=== PATIENT | female | born 1970 | race Caucasian/White ===

== ENCOUNTER 2016-09-27 14:59 | Emergency (ER) | payer MEDICARE, MEDICAID ==
[2016-01-17 13:44] VITALS: BMI 49.3
[~2016-09-27 14:59] MED LIST: ADDERALL 30 MG30 MG PO; ADVAIR 250/501 DISK INH; BAYER CHEWABLE81 MG PO; BENICAR20 MG PO; BUTALB-APAP-CA1 EACH PO; CIPRO500 MG PO; CORTISPORIN OTI10 M1 EACH EAR; EFFEXOR75 MG; FARXIGA10 MG PO; GLUCOPHAGE500 MG PO; K-TAB10 MEQ PO; KEFLEX500 MG PO; LASIX40 MG PO; LEVOTHROID100 MCG PO; LOPRESSOR25 MG PO; NEURONTIN600 MG PO; NITROSTAT0.4 MG SL; NORCO 10/325 TA1 TA1 PO; NORCO 7.5/325 T1 TA1 PO; OXYBUTYNIN CHLOR5 MG PO; PERCOCET 10/3251 TA1 PO; PHENERGAN25 M1 PO; PRAVACHOL40 MG PO; PREDNISONE10 MG PO; PRILOSEC20 MG PO; PROAIR HFA8.5 GM INH; PROTONIX40 MG PO; RESTASIS EYE DR30 EA EACH EYE; SEROQUEL300 MG PO; SOMA350 MG PO; SYNTHROID125 MCG PO; TRAZODONE HCL300 MG PO; TRIGLIDE160 MG PO; VITAMIN D5000 UNIT PO; XANAX2 MG PO; ZANAFLEX4 MG PO; ZOVIRAX400 MG PO
== END 2016-09-27 20:01 | disposition home or self-care (01) ==
LOC: D.ER 14:59
DX: M54.2 Cervicalgia (principal); W18.30XA Fall on same level, unspecified, initial encounter; Y93.89 Activity, other specified; Y92.019 Unspecified place in single-family (private) house as the place of occurrence of the external cause; J45.909 Unspecified asthma, uncomplicated; K21.9 Gastro-esophageal reflux disease without esophagitis; I10 Essential (primary) hypertension; E66.01 Morbid (severe) obesity due to excess calories; F32.9 Major depressive disorder, single episode, unspecified; F41.9 Anxiety disorder, unspecified; E03.9 Hypothyroidism, unspecified

== ENCOUNTER 2017-04-28 17:03 | Emergency (ER) | payer MEDICARE, MEDICAID ==
[2016-01-17 13:44] VITALS: BMI 49.3
[2017-04-28 17:55] LABS: BASOPHILS 0.5 % (0-2); EOSINOPHILS 2.1 % (0-7); HEMATOCRIT 39.3 % (36.0-48.0); HEMOGLOBIN 13.1 g/dL (12-16); IMMATURE GRANULOCYTES 0.5 % (0-5); LYMPHOCYTES 37.6 % (15-50); MCH 29.4 pg (26.0-34.0); MCHC 33.3 g/dL (31.0-37.0); MCV 88.3 fL (80.0-100.0); MEAN PLATELET VOLUME 10.1 fL (7.4-10.4); MONOCYTES 4.5 % (2-11); NEUTROPHILS 54.8 % (40-80); RBC 4.45 10x6/uL (4.00-5.40); RDW 12.7 % (11.5-14.5); WBC 8.1 10x3/uL (4.8-10.8)
[2017-04-28 17:58] LABS: PLATELET COUNT 272 10x3/uL (130-400)
[2017-04-28 18:19] LABS: ALBUMIN 3.8 g/dL (3.4-5.0); ALKALINE PHOSPHATASE 78 U/L (46-116); ALT (SGPT) 28 U/L (10-68); BILIRUBIN - TOTAL 0.15 mg/dL (0.2-1.3); CALC OSMOLALITY 282 mosm/kg (275-300); CALCIUM 8.3 mg/dL (8.5-10.1); CARBON DIOXIDE 25.8 mmol/L (21.0-32.0); CHLORIDE - SERUM 104 mmol/L (98-107); CREATININE - SERUM 0.8 mg/dL (0.6-1.3); GLUCOSE 97 mg/dL (74-106); POTASSIUM - SERUM 3.8 mmol/L (3.5-5.1); PROTEIN - SERUM 6.8 g/dL (6.4-8.2); SODIUM 141 mmol/L (136-145); UREA NITROGEN 18 mg/dL (7-18); eGFR NON AFRICAN AMERICAN 81 mL/min (90-120)
[2017-04-28 18:30] LABS: CHOL - HDL RATIO 2.4 ratio (2.3-4.1); CHOLESTEROL, TOTAL 149 mg/dL (0-200); CKMB 0.7 U/L (0.0-3.6); CREATINE KINASE 464 UL (21-215); HDL CHOLESTEROL 63 mg/dL (32-96); LDL CHOLESTEROL 63 mg/dL (0-100); TRIGLYCERIDE 116 mg/dL (30-200)
[2017-04-28 18:33] LABS: TROPONIN-I < 0.017 ng/mL (0.000-0.060)
[2017-04-28 22:21] LABS: APPEARANCE CLEAR (CLEAR); BILIRUBIN NEGATIVE (NEGATIVE); COLOR YELLOW (YELLOW); GLUCOSE NEGATIVE (NEGATIVE); KETONE NEGATIVE (NEGATIVE); LEUKOCYTE ESTERASE 1+ (NEGATIVE); NITRITE POSITIVE (NEGATIVE); PROTEIN NEGATIVE (NEGATIVE); SPECIFIC GRAVITY 1.015 (1.005-1.020); UROBILINOGEN NORMAL (NORMAL)
[2017-04-28 22:22] LABS: BACTERIA MANY /hpf (NONE SEEN); EPITHELIAL CELLS 0-5 /hpf (0-5); RED CELLS - URINE 0-5 /hpf (0-5)
[2017-04-28 22:31] LABS: UDS - AMPHET NEGATIVE QUAL (NEGATIVE); UDS - BARB POSITIVE QUAL (NEGATIVE); UDS - BENZO NEGATIVE QUAL (NEGATIVE); UDS - COCAINE NEGATIVE QUAL (NEGATIVE); UDS - METH NEGATIVE QUAL (NEGATIVE); UDS - OPIATE POSITIVE QUAL (NEGATIVE); UDS - PCP NEGATIVE QUAL (NEGATIVE); UDS - THC NEGATIVE QUAL (NEGATIVE)
== END 2017-04-28 23:22 | disposition home or self-care (01) ==
LOC: D.ER 17:03
PROVIDERS: Emergency Medicine; Family Medicine
DX: B02.9 Zoster without complications (principal); R07.89 Other chest pain; N39.0 Urinary tract infection, site not specified; J45.909 Unspecified asthma, uncomplicated; K21.9 Gastro-esophageal reflux disease without esophagitis; I10 Essential (primary) hypertension; E11.9 Type 2 diabetes mellitus without complications; J44.9 Chronic obstructive pulmonary disease, unspecified

== ENCOUNTER 2017-06-25 17:37 | Emergency (ER) | payer MEDICARE, MEDICAID ==
[2016-01-17 13:44] VITALS: BMI 49.3
[2017-06-25 20:43] LABS: APPEARANCE HAZY (CLEAR); BILIRUBIN NEGATIVE (NEGATIVE); COLOR YELLOW (YELLOW); GLUCOSE 100 mg/dL (NEGATIVE); KETONE NEGATIVE (NEGATIVE); NITRITE POSITIVE (NEGATIVE); PROTEIN NEGATIVE (NEGATIVE); SPECIFIC GRAVITY 1.015 (1.005-1.020); UROBILINOGEN NORMAL (NORMAL)
[2017-06-25 20:44] LABS: BACTERIA MANY /hpf (NONE SEEN); EPITHELIAL CELLS 0-5 /hpf (0-5); RED CELLS - URINE OCC /hpf (0-5); WHITE CELLS - URINE 0-5 /hpf (0-5)
[2017-06-25 20:48] LABS: UDS - AMPHET NEGATIVE QUAL (NEGATIVE); UDS - BARB POSITIVE QUAL (NEGATIVE); UDS - BENZO POSITIVE QUAL (NEGATIVE); UDS - COCAINE NEGATIVE QUAL (NEGATIVE); UDS - OPIATE POSITIVE QUAL (NEGATIVE); UDS - PCP NEGATIVE QUAL (NEGATIVE); UDS - THC NEGATIVE QUAL (NEGATIVE)
[2017-06-25 21:15] LABS: BASOPHILS 0.5 % (0-2); EOSINOPHILS 3.1 % (0-7); HEMATOCRIT 36.8 % (36.0-48.0); HEMOGLOBIN 11.9 g/dL (12-16); IMMATURE GRANULOCYTES 0.1 % (0-5); MCH 28.8 pg (26.0-34.0); MCHC 32.3 g/dL (31.0-37.0); MCV 89.1 fL (80.0-100.0); MEAN PLATELET VOLUME 10.6 fL (7.4-10.4); MONOCYTES 6.3 % (2-11); PLATELET COUNT 232 10x3/uL (130-400); RBC 4.13 10x6/uL (4.00-5.40); RDW 12.6 % (11.5-14.5); WBC 7.3 10x3/uL (4.8-10.8)
[2017-06-25 21:31] LABS: ALBUMIN 3.1 g/dL (3.4-5.0); ANION GAP 13.1 mmol/L (8-16); CALCIUM 8.1 mg/dL (8.5-10.1); CARBON DIOXIDE 26.8 mmol/L (21.0-32.0); CREATININE - SERUM 0.9 mg/dL (0.6-1.3); POTASSIUM - SERUM 3.9 mmol/L (3.5-5.1); PROTEIN - SERUM 6.2 g/dL (6.4-8.2)
[2017-06-25 21:32] LABS: BILIRUBIN - TOTAL 0.08 mg/dL (0.2-1.3)
[2017-06-25 21:33] LABS: AMYLASE - SERUM 27 U/L (25-115); LIPASE 93 U/L (73-393)
== END 2017-06-25 22:09 | disposition home or self-care (01) ==
LOC: D.ER 17:37
PROVIDERS: Emergency Medicine; Nurse Practitioner Family
DX: N39.0 Urinary tract infection, site not specified (principal); E11.9 Type 2 diabetes mellitus without complications; J44.9 Chronic obstructive pulmonary disease, unspecified; I10 Essential (primary) hypertension

== ENCOUNTER 2017-08-19 17:17 | Emergency (ER) | payer MEDICARE, MEDICAID ==
[2016-01-17 13:44] VITALS: BMI 49.3
[2017-08-19 22:06] LABS: BASOPHILS 0.5 % (0-2); EOSINOPHILS 3.7 % (0-7); HEMATOCRIT 43.9 % (36.0-48.0); HEMOGLOBIN 12.1 g/dL (12-16); IMMATURE GRANULOCYTES 0.6 % (0-5); LYMPHOCYTES 33.1 % (15-50); MCH 29.3 pg (26.0-34.0); MCHC 27.6 g/dL (31.0-37.0); MCV 106.3 fL (80.0-100.0); MONOCYTES 6.3 % (2-11); NEUTROPHILS 55.8 % (40-80); RBC 4.13 10x6/uL (4.00-5.40); RDW 13.9 % (11.5-14.5); WBC 8.4 10x3/uL (4.8-10.8)
[2017-08-19 22:11] LABS: PLATELET COUNT 399 10x3/uL (130-400)
== END 2017-08-19 23:50 | disposition home or self-care (01) ==
LOC: D.ER 17:17
PROVIDERS: Family Medicine
DX: R10.9 Unspecified abdominal pain (principal); K59.00 Constipation, unspecified; J44.9 Chronic obstructive pulmonary disease, unspecified; E11.9 Type 2 diabetes mellitus without complications; I10 Essential (primary) hypertension

== ENCOUNTER 2018-04-30 12:34 | Day surgery (SDC) | payer MEDICARE, MEDICAID ==
[~2018-04-30] VITALS: Ht 167.6 cm; Wt 140.9 kg
--- NOTE | ~2018-04-30 | OP ---
PATIENT NAME: KELLY KUNZ MEDICAL RECORD: [id number] :66 LOCATION:[facility] ADMISSION DATE: SURGEON: REJI MCLEAN MD DATE OF OPERATION: 04/30/2018 PROCEDURE: EGD with balloon dilatation, EGD with biopsy report. SCOPE: Olympus video gastroscope and a CRE Microvasive balloon from 45-60 Guyanese. INDICATION FOR TIVA ANESTHESIA: Anxiety disorder, asthma, COPD, depression, diabetes mellitus, myocardial infarction in the past, seizures, obstructive sleep apnea, mitral valve prolapse and morbid obesity. The patient received 200 mg of propofol for this procedure, O2 4 liters. INDICATION FOR THE PROCEDURE: Abdominal pain in the epigastric area, gastroesophageal reflux disease, nausea and dysphagia. FINDINGS AND DESCRIPTION OF PROCEDURE: Informed consent was given. The patient was made comfortable with the above medications. After reaching an adequate level of sedation by slow IV push, the patient was placed on her left side. The endoscope was then advanced under direct visualization through the posterior pharyngeal area and advanced to the distal esophagus. At the distal esophageal area, a Schatzki's ring was appreciated due to refluxing, and after the inspection part of the EGD was completed, a CRE microvasive balloon was placed in this area, slowly inflated to 60-Guyanese, held in place for 1 minute and then deflated. Photographs were taken before and after dilatation. The patient had mild inflammation in the distal esophageal area and biopsies were obtained. The scope was then advanced to this very small, approximately 3 to 4 cm gastric pouch, a biopsy was taken very close to the anastomosis of the small bowel to the stomach and only very mild inflammation was appreciated. We then advanced the scope down the small bowel and normal mucosa was noted. The scope was then withdrawn. IMPRESSION: 1. Stenotic Schatzki's ring dilated to 60-Guyanese without complication. 2. Mild distal esophagitis, biopsied. 3. Minimal amount of inflammation at the anastomosis between the distal stomach and the small bowel biopsies taken. No ulcers, no erosions. 4. Fairly normal small bowel mucosa. PLAN: The patient is presently on Protonix and she should continue this medication at a dose of 40 mg in the morning and at bedtime we will add a small dose of famotidine 20 mg p.o. at bedtime. She should follow reflux precautions stringently, both dietary and positional that is no chocolate, tomato, citrus, caffeine, fatty foods, peppermint, not eat late at night, sit up for hours after every meal and sleep with the head of the bed elevated. The patient will need to lose some excessive weight, which I think will be helpful for her refluxing problem. No anti-inflammatory drugs please. TRANSINT:[id number] Voice Confirmation ID: [id number] DOCUMENT ID: [id number] CC: Dr. Cervantes OPERATIVE REPORT [id number] KELLY KUNZ BRENDA MD CC: DEBI CANELA MD [id number] DICTATION DATE: 04/30/18 1536 LOBBYIST: 04/30/18 1551 [facility] 04/30/18 [address] [place] [address]
[2018-04-30 13:30] LABS: HEMATOCRIT 35.9 % (36.0-48.0); HEMOGLOBIN 11.8 g/dL (12-16); MCH 28.3 pg (26.0-34.0); MCHC 32.9 g/dL (31.0-37.0); MCV 86.1 fL (80.0-100.0); MEAN PLATELET VOLUME 9.9 fL (7.4-10.4); RBC 4.17 10x6/uL (4.00-5.40); RDW 13.4 % (11.5-14.5); WBC 7.1 10x3/uL (4.8-10.8)
[2018-04-30] MEDS ORDERED: SYMBICORT 16010.2 GM INH (14:20)
[2018-04-30] MEDS ORDERED: AMITIZA8 MCG PO (14:21)
[2018-04-30] MEDS ORDERED: IBUPROFEN600 MG PO (14:21)
[2018-04-30] MEDS ORDERED: MAG-OX 400 MG400 MG PO (14:22)
[2018-04-30] MEDS ORDERED: FARXIGA10 MG (14:24)
[2018-04-30] MEDS ORDERED: KENALOG 0.1 % 115 GM TOPICAL (14:24)
[2018-04-30] MEDS ORDERED: ROBAXIN500 MG PO (14:26)
[2018-04-30 14:43] VITALS: BP 137/80; Ht 167.6 cm; Wt 140.9 kg
== END 2018-04-30 16:30 | disposition home or self-care (01) ==
LOC: D.OPS 12:34
PROVIDERS: Anesthesiology
DX: K22.2 Esophageal obstruction (principal); K21.0 Gastro-esophageal reflux disease with esophagitis; F41.9 Anxiety disorder, unspecified; F32.9 Major depressive disorder, single episode, unspecified; J44.9 Chronic obstructive pulmonary disease, unspecified; E11.9 Type 2 diabetes mellitus without complications; I25.2 Old myocardial infarction; R56.9 Unspecified convulsions; G47.33 Obstructive sleep apnea (adult) (pediatric); I34.1 Nonrheumatic mitral (valve) prolapse; E66.01 Morbid (severe) obesity due to excess calories

== ENCOUNTER → 2018-05-11 12:39 | Outpatient (CLI) | payer MEDICARE, MEDICAID ==
[2018-04-30 14:43] VITALS: BMI 50.1
[~2018-05-11 12:39] MED LIST changes: +AMITIZA8 MCG PO; +FARXIGA10 MG; +IBUPROFEN600 MG PO; +KENALOG 0.1 % 115 GM TOPICAL; +MAG-OX 400 MG400 MG PO; +ROBAXIN500 MG PO; +SYMBICORT 16010.2 GM INH
== END | disposition home or self-care (01) ==
LOC: D.RAD 05-04 13:00
DX: K21.9 Gastro-esophageal reflux disease without esophagitis (principal)

== ENCOUNTER → 2018-06-01 07:13 | Outpatient (CLI) | payer MEDICARE, MEDICAID ==
[2018-04-30 14:43] VITALS: BMI 50.1
== END | disposition home or self-care (01) ==
LOC: D.ST 07:13
DX: R13.12 Dysphagia, oropharyngeal phase (principal)

== ENCOUNTER → 2018-11-13 13:55 | Outpatient (CLI) | payer MEDICARE, MEDICAID ==
[2018-04-30 14:43] VITALS: BMI 50.1
== END | disposition home or self-care (01) ==
LOC: D.RAD 13:55
PROVIDERS: ATTEND Nurse Practitioner Family
DX: M25.512 Pain in left shoulder (principal); M54.2 Cervicalgia; R22.9 Localized swelling, mass and lump, unspecified; W19.XXXA Unspecified fall, initial encounter

== ENCOUNTER 2018-11-13 14:37 | Emergency (ER) | payer MEDICARE, MEDICAID ==
[~2018-11-13] VITALS: Ht 167.6 cm; Wt 136.4 kg
[2018-11-13 14:44] VITALS: Ht 167.6 cm; Wt 136.4 kg
[2018-11-13 15:31] LABS: APTT 23.6 SECONDS (22.8-39.4); INR 1.14 (0.85-1.17); PROTIME 14.1 SECONDS (11.6-15.0)
[2018-11-13 15:43] LABS: ALBUMIN 3.4 g/dL (3.4-5.0); ALKALINE PHOSPHATASE 67 U/L (46-116); ALT (SGPT) 45 U/L (10-68); BILIRUBIN - TOTAL 0.29 mg/dL (0.2-1.3); CALC OSMOLALITY 279 mosm/kg (275-300); CALCIUM 8.5 mg/dL (8.5-10.1); CARBON DIOXIDE 28.1 mmol/L (21.0-32.0); CHLORIDE - SERUM 104 mmol/L (98-107); CREATININE - SERUM 0.9 mg/dL (0.6-1.3); GLUCOSE 125 mg/dL (74-106); POTASSIUM - SERUM 4.6 mmol/L (3.5-5.1); PROTEIN - SERUM 6.7 g/dL (6.4-8.2); SODIUM 139 mmol/L (136-145); UREA NITROGEN 16 mg/dL (7-18); eGFR NON AFRICAN AMERICAN 70 mL/min (90-120)
[2018-11-13 15:46] LABS: CKMB 0.4 U/L (0.0-3.6); CREATINE KINASE 127 UL (21-215); MAGNESIUM - SERUM 2.1 mg/dL (1.8-2.4)
[2018-11-13 15:47] LABS: TROPONIN-I < 0.017 ng/mL (0.000-0.060)
[2018-11-13 16:56] LABS: BASOPHILS 0.8 % (0-2); EOSINOPHILS 3.2 % (0-7); HEMATOCRIT 38.1 % (36.0-48.0); HEMOGLOBIN 12.4 g/dL (12-16); IMMATURE GRANULOCYTES 0.5 % (0-5); LYMPHOCYTES 33.3 % (15-50); MCH 27.5 pg (26.0-34.0); MCHC 32.5 g/dL (31.0-37.0); MCV 84.5 fL (80.0-100.0); MEAN PLATELET VOLUME 10.3 fL (7.4-10.4); NEUTROPHILS 54.2 % (40-80); RBC 4.51 10x6/uL (4.00-5.40); RDW 15.6 % (11.5-14.5); WBC 6.7 10x3/uL (4.8-10.8)
[2018-11-13 16:57] LABS: PLATELET COUNT 284 10x3/uL (130-400)
[2018-11-13 17:32] LABS: APPEARANCE CLEAR (CLEAR); BILIRUBIN NEGATIVE (NEGATIVE); COLOR YELLOW (YELLOW); GLUCOSE 1000 mg/dL (NEGATIVE); KETONE NEGATIVE (NEGATIVE); NITRITE POSITIVE (NEGATIVE); PROTEIN NEGATIVE (NEGATIVE); UROBILINOGEN NORMAL (NORMAL)
[2018-11-13 17:34] LABS: BACTERIA MANY /hpf (NONE SEEN); RED CELLS - URINE 0-5 /hpf (0-5)
[2018-11-13 17:54] VITALS: BP 117/74
== END 2018-11-13 17:53 | disposition home or self-care (01) ==
LOC: D.ER 14:37
PROVIDERS: Family Medicine
DX: S40.012A Contusion of left shoulder, initial encounter (principal); W18.30XA Fall on same level, unspecified, initial encounter; Y93.89 Activity, other specified; Y92.019 Unspecified place in single-family (private) house as the place of occurrence of the external cause; S29.011A Strain of muscle and tendon of front wall of thorax, initial encounter

== ENCOUNTER → 2019-04-26 10:46 | Outpatient (CLI) | payer MEDICARE, MEDICAID ==
[2018-11-13 14:44] VITALS: BMI 48.5
== END | disposition home or self-care (01) ==
LOC: D.CT 04-23 08:30
PROVIDERS: ATTEND Internal Medicine Gastroenterology
DX: R10.9 Unspecified abdominal pain (principal); K92.1 Melena; R11.2 Nausea with vomiting, unspecified

== ENCOUNTER → 2019-05-04 08:33 | Outpatient (CLI) | payer MEDICARE, MEDICAID ==
[2018-11-13 14:44] VITALS: BMI 48.5
[2019-04-26 11:29] LABS: BASOPHILS 0.5 % (0-2); EOSINOPHILS 1.8 % (0-7); HEMATOCRIT 38.3 % (36.0-48.0); IMMATURE GRANULOCYTES 0.6 % (0-5); LYMPHOCYTES 26.5 % (15-50); MCH 29.3 pg (26.0-34.0); MCHC 33.9 g/dL (31.0-37.0); MCV 86.5 fL (80.0-100.0); MEAN PLATELET VOLUME 9.9 fL (7.4-10.4); MONOCYTES 5.3 % (2-11); NEUTROPHILS 65.3 % (40-80); PLATELET COUNT 287 10x3/uL (130-400); RBC 4.43 10x6/uL (4.00-5.40); RDW 13.4 % (11.5-14.5); WBC 8.2 10x3/uL (4.8-10.8)
[2019-04-26 11:40] LABS: ALBUMIN 3.6 g/dL (3.4-5.0); ANION GAP 14.3 mmol/L (8-16); BILIRUBIN - TOTAL 0.26 mg/dL (0.2-1.3); CALCIUM 9.3 mg/dL (8.5-10.1); CARBON DIOXIDE 27.2 mmol/L (21.0-32.0); POTASSIUM - SERUM 4.5 mmol/L (3.5-5.1); PROTEIN - SERUM 7.2 g/dL (6.4-8.2)
[2019-04-26 12:33] LABS: ERYTHROCYTE SEDIMENTATION RATE 8 mm/hr (0-30)
== END | disposition home or self-care (01) ==
LOC: D.RAD 04-21 08:30
PROVIDERS: ATTEND Internal Medicine Gastroenterology
DX: R13.10 Dysphagia, unspecified (principal); K22.70 Barrett's esophagus without dysplasia

== ENCOUNTER → 2019-05-12 08:11 | Outpatient (CLI) | payer MEDICARE, MEDICAID ==
[2018-11-13 14:44] VITALS: BMI 48.5
== END | disposition home or self-care (01) ==
LOC: D.RAD 08:11
PROVIDERS: ATTEND Internal Medicine Gastroenterology
DX: R11.2 Nausea with vomiting, unspecified (principal); R94.8 Abnormal results of function studies of other organs and systems; R10.9 Unspecified abdominal pain; K59.00 Constipation, unspecified; R14.0 Abdominal distension (gaseous)

== ENCOUNTER 2019-06-07 08:00 | Outpatient (CLI) | payer MEDICARE, MEDICAID ==
[2018-11-13 14:44] VITALS: BMI 48.5
== END 2019-06-07 23:59 | disposition home or self-care (01) ==
LOC: D.MAMMO 08:00
PROVIDERS: ATTEND General Practice
DX: Z12.31 Encounter for screening mammogram for malignant neoplasm of breast (principal)

== ENCOUNTER → 2019-08-13 07:14 | Outpatient (CLI) | payer MEDICARE, MEDICAID ==
[2018-11-13 14:44] VITALS: BMI 48.5
== END | disposition home or self-care (01) ==
LOC: D.NM 07:14
PROVIDERS: ATTEND Internal Medicine Gastroenterology
DX: R10.9 Unspecified abdominal pain (principal)

== ENCOUNTER 2020-05-29 09:15 | Outpatient (CLI) | payer MEDICARE, MEDICAID ==
[2018-11-13 14:44] VITALS: BMI 48.5
== END 2020-05-29 10:00 | disposition home or self-care (01) ==
LOC: D.MAMMO 09:15
PROVIDERS: ATTEND General Practice
DX: Z12.31 Encounter for screening mammogram for malignant neoplasm of breast (principal)